=== PATIENT | female | born 1975 | race Caucasian/White ===

== ENCOUNTER → 2019-03-23 | Day surgery (SDC) | payer OTHER ==
[~2019-03-23] MED LIST: ARMOUR THYROID90 MG PO; FOLGARD TABLET1 EACH PO; MAXFE CAPLET1 EACH PO; NAPROXEN500 MG PO; ZITHROMAX500 MG PO
== END | disposition home or self-care (01) ==
LOC: ADM 03-17 10:00 → CIR.AMB 05:43
DX: N84.0 Polyp of corpus uteri (principal)